=== PATIENT | female | born 1960 | race African-American/Black ===

== ENCOUNTER 2024-01-30 12:46 | Outpatient (CLI) | payer OTHER | END 2024-01-30 12:47 | disposition home or self-care (01) | LOC: CSHCT 12:46 | PROVIDERS: ATTEND Internal Medicine | DX: D86.89 Sarcoidosis of other sites (principal); R91.1 Solitary pulmonary nodule | CPT/HCPCS: 71250; 93306; 94010; 94726; 94727; 94729; 94760 ==